=== PATIENT | male | born 1975 | race Caucasian/White ===

== ENCOUNTER 2017-04-15 22:50 | Inpatient (IN) | payer MEDICAID, OTHER ==
[2017-04-15 22:51] VITALS: BMI 25.8
--- NOTE | 2017-04-15 23:33 | C.PDOC ---
History Of Present Illness Patient was brought to the ED by a friend for evaluation of "hearing voices and seeing things." Patient denies physical complaints, suicidal, or homicidal ideations. Time Seen by Provider: 04/15/17 23:32 Chief Complaint (Nursing): Psychiatric Evaluation History Per: Other (friend ) History/Exam Limitations: no limitations Onset/Duration Of Symptoms: Unknown Current Symptoms Are (Timing): Still Present Suicide/Self Injury Attempted (Context): None Severity: None Pain Scale Rating Of: 0 Associated Symptoms: denies: Suicidal Thoughts, Suicidal Plan Involuntary Hold By: None Recent travel outside of the [place]: No Additional History Per: Patient Past Medical History Reviewed: Historical Data, Nursing Documentation, Vital Signs Vital Signs: Last Vital Signs Temp 98.7 F 04/15/17 23:14 Pulse 81 04/15/17 23:14 Resp 16 04/15/17 23:14 BP 178/91 H 04/15/17 23:14 Pulse Ox 100 04/16/17 00:13 - Medical History PMH: Anxiety, Depression - [facility] GROUP PSYCHOTHERAPY (01/26/16) MEDICATION MANAGEMENT (01/26/16) PHARMACOTHERAPY FOR SUBSTANCE ABUSE, METHADONE MAINT (01/26/16) Family History: States: Unknown Family Hx - Social History Hx Tobacco Use: Yes Hx Alcohol Use: No Hx Substance Use: Yes - Immunization History Hx Tetanus Toxoid Vaccination: No Hx Influenza Vaccination: No Hx Pneumococcal Vaccination: No Review Of Systems Constitutional: Negative for: Fever, Chills Cardiovascular: Negative for: Chest Pain Respiratory: Negative for: Shortness of Breath Psych: Positive for: Other (Patient is "hearing voices and seeing things"). Negative for: Suicidal ideation Physical Exam - Physical Exam Appears: Non-toxic, No Acute Distress, Other (Patient is anxious ) Skin: Warm, Dry Head: Atraumatic Eye(s): bilateral: Normal Inspection, PERRL, EOMI Oral Mucosa: Moist Neck: Supple Chest: Symmetrical Cardiovascular: Rhythm Regular Respiratory: No Rales, No Rhonchi, No Wheezing Gastrointestinal/Abdominal: Soft, No Tenderness, No Distention, No Guarding, No Rebound Extremity: Normal ROM, No Tenderness Neurological/Psych: Oriented x3, Normal Speech, Normal Cognition, Normal Cranial Nerves, Normal Motor, Normal Sensation, Normal Reflexes ED Course And Treatment - Laboratory Results Result Diagrams: 04/15/17 23:43 04/15/17 23:43 O2 Sat by Pulse Oximetry: 100 (room air ) Disposition Discussed With Dr.: Danii Barnes Comment: accepted the pt on her service and took over the care at 2 AM Doctor Will See Patient In The: Hospital Counseled Patient/Family Regarding: Studies Performed, Diagnosis - Disposition Disposition: HOSPITALIZED Disposition Time: 23:33 Condition: FAIR Forms: [facility] (Qatari) - POA Present On Arrival: None - Clinical Impression Clinical Impression: Drug abuse, Schizoaffective disorder - Scribe Statement The provider has reviewed the documentation as recorded by the Scribe Elyse Singh All medical record entries made by the Scribe were at my direction and personally dictated by me. I have reviewed the chart and agree that the record accurately reflects my personal performance of the history, physical exam, medical decision making, and the department course for this patient. I have also personally directed, reviewed, and agree with the discharge instructions and disposition. Decision To Admit - Pt Status Changed To: Hospital Disposition Of: Inpatient - Admit Certification Admit to Inpatient:: After my assessment, the patient will require hospitalization for at least two midnights. This is because of the severity of symptoms shown, intensity of services needed, and/or the medical risk in this patient being treated as an outpatient. - InPatient: Physician Admission Certification: I certify that this patient requires 2 or more midnights of care for the following reason:: After my assessment, the patient will require hospitalization for at least two midnights. This is because of the severity of symptoms shown, intensity of services needed, and/or the medical risk in this patient being treated as an outpatient. - . Bed Request Type: Psychiatry Admitting Physician: Danii Barnes Patient Diagnosis: Drug abuse, Schizoaffective disorder
[2017-04-15 23:46] LABS: BASO # 0.1 K/uL (0.0-0.2); BASO % 0.5 % (0.0-2.0); EOS # 0.1 K/uL (0.0-0.7); EOS % 0.6 % (0.0-4.0); HEMATOCRIT 40.6 % (35.0-51.0); LYMPH # 2.5 K/uL (1.0-4.3); LYMPH % 20.5 % (20.0-40.0); MEAN CORPUSCULAR HEMOGLOBIN 30.9 pg (27.0-31.0); MEAN PLATELET VOLUME 7.8 fL (7.2-11.7); MONO # 0.6 K/uL (0.0-0.8); MONO % 5.3 % (0.0-10.0); RED CELL DISTRIBUTION WIDTH 13.3 % (11.5-14.5); WHITE BLOOD COUNT 12.2 K/uL (4.8-10.8)
[2017-04-15 23:54] LABS: CHLORIDE 99 mmol/L (98-107); SODIUM 142 mmol/L (132-148)
[2017-04-15 23:55] LABS: POTASSIUM 3.5 mmol/L (3.6-5.2)
[2017-04-15 23:56] LABS: GFR AFRICAN-AMERICAN > 60
[2017-04-15 23:57] LABS: ALB/GLOB RATIO 1.2 (1.0-2.1); ALKALINE PHOSPHATASE 46 U/L (38-126); ALT/SGPT 28 U/L (21-72); AST/SGOT 18 U/L (17-59); BILIRUBIN,TOTAL 0.4 mg/dL (0.2-1.3); BLOOD UREA NITROGEN 15 mg/dL (9-20); CARBON DIOXIDE 29 mmol/L (22-30); GLUCOSE,RANDOM 77 mg/dL (75-110)
[2017-04-15 23:58] LABS: ALCOHOL SERUM < 10 mg/dl (0-10)
[2017-04-16 00:04] LABS: CALCIUM 9.6 mg/dl (8.6-10.4)
[2017-04-16 01:01] LABS: URINE BILIRUBIN NEGATIVE (NEGATIVE); URINE BLOOD NEGATIVE (NEGATIVE); URINE COLOR Yellow (YELLOW); URINE GLUCOSE (UA) NORMAL (Normal); URINE KETONE NEGATIVE (NEGATIVE); URINE LEUKOCYTE ESTERASE NEG Leu/uL (Negative); URINE PROTEIN NEGATIVE (NEGATIVE); URINE UROBILINOGEN NORMAL mg/dL (0.2-1.0); WBC URINE < 1 /hpf (0-5)
[2017-04-16 03:07] VITALS: O2SAT 97
--- NOTE | 2017-04-16 03:34 | PCM.BM ---
<Florencio Barr - Last Filed: 04/16/17 03:31> Treatment Plan Problems - Problems identified on initial assessmt Depression Date Initiated: 04/16/17 Time Initiated: 03:32 Assessment reference: NA Status: Active Audio Hallucination Date Initiated: 04/16/17 Time Initiated: 03:33 Assessment reference: NA Status: Active Substance Abuse Date Initiated: 04/16/17 Time Initiated: 03:34 Assessment reference: NA Status: Active Treatment assets and liabiliti Patient Assests: cooperative, ADL independent, good support system, negotiates basic needs Patient Liabilities: live alone, financial problems, substance abuse - Milieu Protocol Maintain good personal hygiene: daily Encourage regular showers, daily Remind patient to perform daily oral care, daily Assist patient to perform ADL's Maintain personal safety: every shift Educate patient to report safety concerns to staff, every shift Monitor environment for contraband/sharps Medication safety: Monitor for expected outcome, potential side effects: every shift, Assess barriers to learning: every shift, Assess readiness for medication education: every shift <Lore Flores - Last Filed: 04/17/17 11:34> Family Contact Family involvement: Famliy/SO not involved - Goals for Treatment Patient goals for treatment: "I want to go to rehab." Discharge/Continuing Care - Education Needs Education Needs: Patient Medication, Patient Coping Skills - Discharge Discharge Criteria: Tolerates medication w/o severe side effects, No longer exhibiting s/s of withdrawal Discharge to:: Substance Abuse Rehab - Treatment Team Participation Discussed with Family/SO: No Was Patient/Family/SO present at Treatment Team Meeting: Yes <Khadar Kulkarni - Last Filed: 04/17/17 11:39>
--- NOTE | 2017-04-16 23:08 | PCM.PSYCH ---
Initial Psychiatric Evaluation - Initial Psychiatric Evaluation Legal Status: Capacity Chief Complaint (in patient's own words): "I have heroin withdrawal" Patient's Reaction to Hospitalization: He stated that he is feeling safe in the hospital History of Present Illness and Precipitating Events: Patient is a 42 year old , single, unemployed, homeless male, with a history of depressive disorder, opioid use disorder, cocaine use disorder who came to the ED with depressed mood and suicidal ideation. Patient reports that he relapsed on cocaine, and heroin 3 month ago. Opiates : He started using heroine at the age of 18 years , increased gradually , currently using 10 bags daily, sniffing, last use was yesterday. cocaine for $30 worth on a daily basis by snorting. As per the patient yesterday he used almost 10 bags of heroin, $30 cocaine . became increasingly depressed for 1 week and suicidal for 3 days with a plan to commit suicide by jumping from roof or hang himself. He stated he was worried and does not want to end his life and came to the hospital to get help. Reported history of one previous suicidal attempt by overdose on pills, was not hospitalized. Cannabis: use daily 2-3 blunt. He denied drinking etoh. Patient reported hearing voices, stating that the voices were telling him to hurt himself and his family. However, he stated that he never acted on these voices. Reports depressed mood, feelings of hopelessness and helplessness, suicidal ideation with plan to overdose. Denies any homicidal ideation. Denies any Visual hallucinations or any delusions currently. Denies any racing of thoughts , flight of ideas or any manic symptoms. Denied any anxiety symptoms. Smokes cigarettes one pack daily. He denied manic symptoms. Social History: Home less, single, unemployed. Current Medications: Active Medications Generic Name Dose Route Start Last Admin Trade Name Freq PRN Reason Stop Dose Admin Hydroxyzine HCl 50 mg 04/16/17 03:56 Atarax PO QID PRN Anxiety Past Psychiatric History - Past Psychiatric History Prior Professional Help: multiple admission Prior Psychiatric Treatment: pt is not compliant with the treatment [facility] Duration: Few days to week Nature of Treatment: medication management Explanation of prior treatment: opiate detox and MDD tx History of Abuse: denied History of ETOH/Drug Use: Please see hpi History of Family Illness: denied Pertinent Medical Hx (Current Medical&Sleep Prob, Allergies): Allergies Allergy/AdvReac Type Severity Reaction Status Date / Time No Known Allergies Allergy Verified 01/26/16 01:11 Review of Systems - Review of Systems All systems: reviewed and no additional remarkable complaints except (please see HPI) Mental Status Examination - Personal Presentation Personal Presentation: Looks stated age Additional comments: positive chills and sweating, yawning, nasal discharge - Affect Affect: Constricted - Motor Activity Motor Activity: Calm, Psychomotor Retardation - Reliability in Providing Information Reliability in Providing Information: Good - Speech Speech: Organized - Mood Mood: Depressed - Formal Thought Process Formal Thought Process: Hallucinations - Hallucinations/Delusions Hallucinations: Auditory Additional comments: telling him to end his life - Obsessions/Compulsions Obsessions: No Compulsions: No - Cognitive Functions Orientation: Person, Place, Situation, Time Sensorium: Alert Attention/Concentration: Attentive Abstract Thinking: [place] Estimate of Intelligence: Average Judgement: Intact, as evidence by: Good judgement, Intact, as evidence by: Insight regarding need for hospitalization Memory: Recent intact, as evidence by: Ability to recall events of the day - Risk Risk: Withdrawal - Strength & Assets Inventory Strength & Assets Inventory: Intelligence, Interests/hobbies, Cooperative - Limitations Limitations: Other (homeless and unemployed) DSM 5 DX - DSM 5 DSM 5 Diagnosis: Major depressive disorder recurrent severe, with psychosis Opiate use disorder severe Cocaine use disorder Cannabis use disorder - Recommended/Plan of Treatment Treatment Recommendations and Plan of Treatment: Treatment Recommendations and Plan of Treatment: Patient education Supportive therapy Will start methadone taper Start Zoloft for depression Abilify for Psychosis Trazodone prn for sleep Atarax prn for anxiety Other supporting medications Medication benefits and side effects discussed with the pt. He verbalized understanding and in agreement with the plan Projected ELOS: 7-10 days Prognosis: fair with meds Discharge Plan and Discharge Criteria: as per SW - Smoking Cessation Smoking Cessation Initiated: Yes
--- NOTE | 2017-04-17 15:35 | PCM.PYCHPN ---
Psychiatric Progress Note - Psychiatric Progress Note Patient seen today, length of contact: 16 mins Patient Chief Complaint: "I am stressed" Problems Identified/Issues Discussed: The pt is seen, chart reviewed, case discussed with staff. Pt reports feeling stressed about "everything." Pt is currently homeless but did have a job before. Pt left [place] and came to [place] on Monday night to stay with one of his girlfriends. Pt has 6 children. Pt reports auditory hallucinations for a week that tell him to kill himself. Pt reports snorting 1 bundle a day of heroin and reports occasionally snorting cocaine as well. Pt denies use of any other drugs or alcohol. Pt says he plans to talk to his social media specialist for help after discharge. The pt is compliant with medications and reports no side-effects. Symptoms are improving but needs more time to stabilize. After care discussed, support and psychoeducation given. Mental Status Examination - Cognitive Function Orientation: Person, Place, Situation, Time - Mood Mood: Depressed - Affect Affect: Constricted - Formal Thought Process Formal Thought Process: Hallucinations - Homicidal Ideation Homicidal Ideation: No Goal/Treatment Plan - Goal/Treatment Plan Progress Toward Problem(s) and Goals/Treatment Plan: methadone taper Zoloft for depression Abilify for Psychosis Trazodone prn for sleep Atarax prn for anxiety Other supporting medications Medication benefits and side effects discussed with the pt. He verbalized understanding and in agreement with the plan Continue medications Support and psychoeducation daily Attend groups and activities daily After care planning by IDALMIS
[2017-04-18] MEDS: Hydrocortisone 1% Cream (30 GM) TOP SCH (13:43)
--- NOTE | 2017-04-18 14:01 | PCM.PYCHPN ---
Psychiatric Progress Note - Psychiatric Progress Note Patient seen today, length of contact: 16 mins Patient Chief Complaint: "I am stressed" Problems Identified/Issues Discussed: The pt is seen, chart reviewed, case discussed with staff. Pt says he still feels depressed. Pt requests a cream for discoloration on his face. Pt says the discoloration is due to snorting heroin. Pt denies SI, AVH, and paranoid delusions. Pt says he did not sleep well last night. The pt is compliant with medications and reports no side-effects. Symptoms are improving but needs more time to stabilize. After care discussed, support and psychoeducation given. Medication Change: Yes (Methadone taper) Mental Status Examination - Cognitive Function Orientation: Person, Place, Situation, Time - Mood Mood: Depressed - Affect Affect: Constricted - Formal Thought Process Formal Thought Process: Hallucinations - Homicidal Ideation Homicidal Ideation: No Goal/Treatment Plan - Goal/Treatment Plan Progress Toward Problem(s) and Goals/Treatment Plan: methadone taper Zoloft for depression Abilify for Psychosis Trazodone prn for sleep Atarax prn for anxiety Other supporting medications Medication benefits and side effects discussed with the pt. He verbalized understanding and in agreement with the plan Continue medications Support and psychoeducation daily Attend groups and activities daily After care planning by IDALMIS
[2017-04-19] MEDS: Hydrocortisone 1% Cream (30 GM) TOP SCH ×3 (09:39→17:00)
--- NOTE | 2017-04-19 14:03 | PCM.PYCHPN ---
Psychiatric Progress Note - Psychiatric Progress Note Patient seen today, length of contact: 16 mins Patient Chief Complaint: "I am depressed" Problems Identified/Issues Discussed: The pt is seen, chart reviewed, case discussed with staff. Pt reports feeling sad and depressed and reports feeling the same as yesterday. Pt reports racing thoughts and says he did not sleep well last night. Pt reports hearing voices in his head but could not specify what the voices were saying. Pt denies visual hallucinations. Pt says he vomitted last night and also reports abdominal and joint pain. Pt denies any diarrhea. The pt is compliant with medications and reports no side-effects. Symptoms are improving but needs more time to stabilize. After care discussed, support and psychoeducation given. Medication Change: Yes (Methadone taper) Medical Record Reviewed: Yes Mental Status Examination - Cognitive Function Orientation: Person, Place, Situation, Time Memory: Intact Attention: WNL Concentration: Poor Association: WNL Fund of Knowledge: Poor - Mood Mood: Depressed - Affect Affect: Constricted - Formal Thought Process Formal Thought Process: Hallucinations, Delusions - Suicidal Ideation Suicidal Ideation: No - Homicidal Ideation Homicidal Ideation: No Goal/Treatment Plan - Goal/Treatment Plan Need for Continued Stay: Severe depression anxiety, Failed transitioning Progress Toward Problem(s) and Goals/Treatment Plan: Continue medications Support and psychoeducation daily Attend groups and activities daily After care planning by IDALMIS - Smoking Cessation Smoking Cessation Initiated: No
[2017-04-20] MEDS: Hydrocortisone 1% Cream (30 GM) TOP SCH ×2 (10:13→17:32)
--- NOTE | 2017-04-20 12:48 | PCM.PYCHPN ---
Psychiatric Progress Note - Psychiatric Progress Note Patient seen today, length of contact: 15 minutes Patient Chief Complaint: "I feel better" Problems Identified/Issues Discussed: Patient seen , chart reviewed, case discussed with staff. Pt reports difficulty sleeping last night even with change in medications. Pt reports feeling better than yesterday. The pt is compliant with medications and reports no side-effects. Symptoms are improving but needs more time to stabilize. After care discussed, support and psychoeducation given. Medical Problems: None reported Diagnostic Results: Reviewed DSM 5 Symptoms Update: Improving with treatment Medication Change: No Medical Record Reviewed: Yes Mental Status Examination - Cognitive Function Orientation: Person, Place, Situation, Time Memory: Intact Attention: WNL Concentration: WNL Association: WN Fund of Knowledge: [facility] Decription of patient's judgement and insights: Fair - Mood Mood: Depressed (Less than before) - Affect Affect: Constricted - Speech Speech: Soft - Formal Thought Process Formal Thought Process: Other - Suicidal Ideation Suicidal Ideation: No - Homicidal Ideation Homicidal Ideation: No Goal/Treatment Plan - Goal/Treatment Plan Need for Continued Stay: Remain at risks for inpatient hospitalization, Discharge may exacerbated symptoms, Severe functional impairment Progress Toward Problem(s) and Goals/Treatment Plan: Continue medications Support and psychoeducation daily Attend groups and activities daily After care planning by IDALMIS Estimated Date of D/C: 04/24/17 - Smoking Cessation Smoking Cessation Initiated: No
[2017-04-21] MEDS: Hydrocortisone 1% Cream (30 GM) TOP SCH ×2 (09:05→17:15)
--- NOTE | 2017-04-21 16:11 | PCM.PYCHPN ---
Psychiatric Progress Note - Psychiatric Progress Note Patient seen today, length of contact: 15 minutes Patient Chief Complaint: "I feel better" Problems Identified/Issues Discussed: Patient seen , chart reviewed, case discussed with staff. Pt reports better sleeping last night. Pt reports feeling better than yesterday. The pt is compliant with medications and reports no side-effects. Symptoms are improving but needs more time to stabilize. After care discussed, support and psychoeducation given. Medical Problems: None reported Diagnostic Results: Reviewed DSM 5 Symptoms Update: Improving with treatment Medication Change: No Medical Record Reviewed: Yes Mental Status Examination - Cognitive Function Orientation: Person, Place, Situation, Time Memory: Intact Attention: WNL Concentration: WNL Association: [facility] Fund of Knowledge: [facility] Decription of patient's judgement and insights: Fair - Mood Mood: Depressed (Less than before) - Affect Affect: Depressed - Speech Speech: Soft - Formal Thought Process Formal Thought Process: No Impairment, Other Psychotic Thoughts and Behaviors: None - Suicidal Ideation Suicidal Ideation: No - Homicidal Ideation Homicidal Ideation: No Goal/Treatment Plan - Goal/Treatment Plan Need for Continued Stay: Remain at risks for inpatient hospitalization, Discharge may exacerbated symptoms, Severe functional impairment Progress Toward Problem(s) and Goals/Treatment Plan: Continue medications Support and psychoeducation daily Attend groups and activities daily After care planning by IDALMIS Estimated Date of D/C: 04/24/17 - Smoking Cessation Smoking Cessation Initiated: No
[2017-04-22] MEDS: Hydrocortisone 1% Cream (30 GM) TOP SCH ×2 (09:35→17:20)
--- NOTE | 2017-04-22 17:11 | PCM.PYCHPN ---
Psychiatric Progress Note - Psychiatric Progress Note Patient seen today, length of contact: 15 minutes Patient Chief Complaint: "I feel much better better" Problems Identified/Issues Discussed: Patient seen , chart reviewed, case discussed with staff. Pt reports better sleeping last night. Pt reports feeling better than yesterday. The pt is compliant with medications and reports no side-effects. Today patient was more social with other patients on the unit Symptoms are improving but needs more time to stabilize. After care discussed, support and psychoeducation given. Medical Problems: None reported Diagnostic Results: Reviewed DSM 5 Symptoms Update: Improving with treatment Medication Change: No Medical Record Reviewed: Yes Mental Status Examination - Cognitive Function Orientation: Person, Place, Situation, Time Memory: Intact Attention: WNL Concentration: WNL Association: [facility] Fund of Knowledge: [facility] Decription of patient's judgement and insights: Fair - Mood Mood: Depressed (Much Less than before) - Affect Affect: Other (Appropriate) - Speech Speech: Soft - Formal Thought Process Formal Thought Process: No Impairment, Other Psychotic Thoughts and Behaviors: None - Suicidal Ideation Suicidal Ideation: No - Homicidal Ideation Homicidal Ideation: No Goal/Treatment Plan - Goal/Treatment Plan Need for Continued Stay: Remain at risks for inpatient hospitalization, Discharge may exacerbated symptoms, Severe functional impairment Progress Toward Problem(s) and Goals/Treatment Plan: Continue medications Support and psychoeducation daily Attend groups and activities daily After care planning by IDALMIS Estimated Date of D/C: 04/24/17 - Smoking Cessation Smoking Cessation Initiated: No
[2017-04-23 07:57] VITALS: BP 129/63; PULSE 71; RESP 18; TEMP 97
--- NOTE | 2017-04-23 16:32 | PCM.PYCHDC ---
Mental Status Examination - Mental Status Examination Orientation: Person, Place, Situation, Time Memory: Intact Mood: Neutral Affect: Other (Appropriate) Speech: Appropriate Attention: WNL Concentration: WNL Association: WNL Fund of Knowledge: WNL Formal Thought Process: No Impairment Description of patient's judgement and insight: Fair Psychotic Thoughts and Behaviors: None Suicidal Ideation: No Current Homicidal Ideation?: No Discharge Summary - Discharge Note Reason for Hospitalization: Major depressive disorder recurrent severe with psychotic features Opiate use disorder Cocaine use disorder Psychiatric History (includes Medical, Family, Personal Hx): medication management Laboratory Data: Reviewed Consultations:: List each consultation separately and include: 1. Reason for request. 2. Findings. 3. Follow-up Summary of Hospital Course include:: 1. Description of specific treatment plan utilized for patients during their course of treatmen. 2. Summarize the time- course for resolution of acute symptoms and/or regressed behaviors. 3. Describe issues identified and worked on during hospitalization. 4. Describe medication utilized. 5. Describe medical problems identified and treated. 6. Reassessment of suicide risk Summary of Hospital Course: Patient is a 42 year old , single, unemployed, homeless male, with a history of depressive disorder, opioid use disorder, cocaine use disorder who came to the ED with depressed mood and suicidal ideation. Patient reports that he relapsed on cocaine, and heroin 3 month ago. Opiates : He started using heroine at the age of 18 years , increased gradually , currently using 10 bags daily, sniffing, last use was yesterday. cocaine for $30 worth on a daily basis by snorting. As per the patient yesterday he used almost 10 bags of heroin, $30 cocaine . became increasingly depressed for 1 week and suicidal for 3 days with a plan to commit suicide by jumping from roof or hang himself. He stated he was worried and does not want to end his life and came to the hospital to get help. Reported history of one previous suicidal attempt by overdose on pills, was not hospitalized. Cannabis: use daily 2-3 blunt. He denied drinking etoh. Patient reported hearing voices, stating that the voices were telling him to hurt himself and his family. However, he stated that he never acted on these voices. Reports depressed mood, feelings of hopelessness and helplessness, suicidal ideation with plan to overdose. Denies any homicidal ideation. Denies any Visual hallucinations or any delusions currently. Denies any racing of thoughts , flight of ideas or any manic symptoms. Denied any anxiety symptoms. Smokes cigarettes one pack daily. He denied manic symptoms. Social History: Home less, single, unemployed. During his stay on the unit patient was treated for his symptoms of opiate withdrawal with methadone and other when necessary medications. Patient was also started on Abilify, sertraline and allopurinol medications. With the above treatment patient started feeling better with no withdrawal symptoms. Today patient was ready for discharge. At the time of evaluation and discharge, patient was awake alert oriented 3, had no delusions, no auditory or visual hallucinations, no suicidal ideations or homicidal ideations. Patient was discharged in a stable condition. Patient will go to [facility]. - Final Diagnosis (DSM 5) Condition upon Discharge: STABLE Disposition: HOME/ ROUTINE Prescriptions/Medication Reconciliation: ARIPiprazole [Abilify] 10 mg PO HS #30 tab Sertraline [Zoloft] 100 mg PO DAILY #30 tab traZODone [Desyrel] 100 mg PO DAILY #30 tab - Smoking Cessation Smoking Cessation Medication prescribed: No - Antipsychotic Medications Pt discharged on 2 or more routine antipsychotic medications: No
== END 2017-04-23 12:48 | disposition home or self-care (01) | DRG 744 ==
LOC: C.ER 22:50 → C.5E 04-16 02:03
PROVIDERS: ADMIT Psychiatry & Neurology Psychiatry; ATTEND Psychiatry & Neurology Psychiatry
PROC: HZ2ZZZZ Detoxification Services for Substance Abuse Treatment (ICD-10-PCS; principal; 2017-04-16)
PROC: HZ56ZZZ Individual Psychotherapy for Substance Abuse Treatment, Psychoeducation (ICD-10-PCS; 2017-04-16)
PROC: HZ59ZZZ Individual Psychotherapy for Substance Abuse Treatment, Supportive (ICD-10-PCS; 2017-04-16)
DX: F11.23 Opioid dependence with withdrawal (principal); F33.3 Major depressive disorder, recurrent, severe with psychotic symptoms; R45.851 Suicidal ideations; F41.9 Anxiety disorder, unspecified; F14.10 Cocaine abuse, uncomplicated; Z59.0 Homelessness; F17.210 Nicotine dependence, cigarettes, uncomplicated; F12.10 Cannabis abuse, uncomplicated

== ENCOUNTER 2017-09-16 23:08 | Emergency (ER) | payer OTHER ==
[2017-09-16 23:09] VITALS: BMI 25.8
[2017-09-16 23:33] VITALS: RESP 20
--- NOTE | 2017-09-16 23:52 | C.PDOC ---
History Of Present Illness 42 years old male with known hx of depression, is currently not on medications due to lack of insurance. Patient complaints of feeling depressed. Patient currently lost his job. Pt states he is hearing voices telling him to jump infront of the path train. Pt had prior hospitalization in [facility] for suicidal ideation. Denies drug, alcohol use or any physical complaints. Pt is not currently having hallucinations but was having auditory hallucinations this evening. Time Seen by Provider: 09/16/17 23:41 Chief Complaint (Nursing): Psychiatric Evaluation History Per: Patient History/Exam Limitations: no limitations Onset/Duration Of Symptoms: Hrs Current Symptoms Are (Timing): Still Present Suicide/Self Injury Attempted (Context): None Modifying Factor(s): None Associated Symptoms: Depression, Suicidal Thoughts. denies: Anger Involuntary Hold By: None Recent travel outside of the [place]: No Past Medical History Reviewed: Historical Data, Nursing Documentation, Vital Signs Vital Signs: Last Vital Signs Temp 97.9 F 09/17/17 05:21 Pulse 65 09/17/17 05:21 Resp 20 09/17/17 05:21 BP 137/85 09/17/17 05:21 Pulse Ox 98 09/17/17 05:21 - Medical History PMH: Anxiety, Depression - [facility] DETOXIFICATION SERVICES FOR SUBSTANCE ABUSE TREATMENT (04/16/17) GROUP PSYCHOTHERAPY (01/26/16) INDIV PSYCHOTHERAPY FOR SUBSTANCE ABUSE TREATMENT, SUPPORT (04/16/17) INDIV PSYCHOTHERAPY FOR SUBSTANCE ABUSE, PSYCHOEDUCATION (04/16/17) MEDICATION MANAGEMENT (01/26/16) PHARMACOTHERAPY FOR SUBSTANCE ABUSE, METHADONE MAINT (01/26/16) Family History: States: Unknown Family Hx - Social History Hx Tobacco Use: Yes Hx Alcohol Use: No Hx Substance Use: Yes ([facility]) - Immunization History Hx Tetanus Toxoid Vaccination: No Hx Influenza Vaccination: No Hx Pneumococcal Vaccination: No Review Of Systems Constitutional: Negative for: Fever Cardiovascular: Negative for: Chest Pain Gastrointestinal: Negative for: Nausea, Vomiting, Diarrhea Neurological: Negative for: Weakness, Numbness, Change in Speech Psych: Positive for: Depression, Suicidal ideation Physical Exam - Physical Exam Appears: Well, Non-toxic, No Acute Distress, Other (Awake and alert; no evidence of IV drug use) Skin: Warm, Dry Head: Atraumatic, Normacephalic Eye(s): bilateral: Normal Inspection Oral Mucosa: Moist Neck: Supple Chest: Symmetrical, No Tenderness Respiratory: Normal Breath Sounds, No Decreased Breath Sounds, No Rales, No Rhonchi, No Wheezing Gastrointestinal/Abdominal: Soft, No Tenderness Extremity: Normal ROM Extremity: Bilateral: Normal Color And Temperature, Normal ROM Pulses: Left Radial: Normal, Right Radial: Normal Neurological/Psych: Oriented x3, Normal Speech, Normal Cognition, Other (no focal deficits) ED Course And Treatment - Laboratory Results Result Diagrams: 09/17/17 00:37 09/17/17 00:37 O2 Sat by Pulse Oximetry: 99 (RA) Pulse Ox Interpretation: Normal Medical Decision Making Medical Decision Making: Ordered EKG, drug screen, blood work and urinalysis. Crisis notified..Pt is medically cleared for psych eval Disposition - Disposition Disposition: OTHER INSTITUTION Disposition Time: 03:40 Condition: FAIR Forms: [facility] (Uzbek) - Clinical Impression Clinical Impression: Moderate major depression, single episode, Drug abuse, Suicidal ideation - Scribe Statement The provider has reviewed the documentation as recorded by the Scribjacinta Brenner All medical record entries made by the Scribe were at my direction and personally dictated by me. I have reviewed the chart and agree that the record accurately reflects my personal performance of the history, physical exam, medical decision making, and the department course for this patient. I have also personally directed, reviewed, and agree with the discharge instructions and disposition.
[2017-09-17 00:43] LABS: BASO % 0.5 % (0.0-2.0); EOS % 0.3 % (0.0-4.0); HEMOGLOBIN 14.6 g/dL (12.0-18.0); LYMPH # 1.8 K/uL (1.0-4.3); LYMPH % 18.6 % (20.0-40.0); MEAN CELL VOLUME 90.9 fL (80.0-94.0); MEAN CORPUSCULAR HGB CONC 35.2 g/dL (33.0-37.0); MEAN PLATELET VOLUME 8.3 fL (7.2-11.7); MONO # 0.7 K/uL (0.0-0.8); MONO % 7.3 % (0.0-10.0); NEUT % 73.3 % (50.0-75.0); RBC 4.57 Mil/uL (4.40-5.90); RED CELL DISTRIBUTION WIDTH 12.9 % (11.5-14.5); WHITE BLOOD COUNT 9.5 K/uL (4.8-10.8)
[2017-09-17 00:54] LABS: ACETAMINOPHEN < 10.0 ug/mL (10.0-30.0); SALICYLATE < 1.0 mg/dL 1
[2017-09-17 00:56] LABS: ALB/GLOB RATIO 1.4 (1.0-2.1); ALBUMIN 4.6 g/dL (3.5-5.0); ALT/SGPT 27 U/L (21-72); AST/SGOT 21 U/L (17-59); BLOOD UREA NITROGEN 15 mg/dL (9-20); CALCIUM 9.1 mg/dl (8.6-10.4); GFR AFRICAN-AMERICAN > 60; GFR NON-AFRICAN AMERICAN > 60
[2017-09-17 01:20] LABS: URINE BILIRUBIN NEGATIVE (NEGATIVE); URINE BLOOD NEGATIVE (NEGATIVE); URINE CLARITY Clear (Clear); URINE COLOR Yellow (YELLOW); URINE GLUCOSE (UA) NORMAL (Normal); URINE LEUKOCYTE ESTERASE NEG Leu/uL (Negative); URINE NITRATE NEGATIVE (NEGATIVE); URINE PROTEIN NEGATIVE (NEGATIVE)
[2017-09-17 02:04] LABS: BARBITURATES, UR NEGATIVE (NEGATIVE); BENZODIAZEPINES, UR NEGATIVE (NEGATIVE); PHENCYCLIDINE, UR NEGATIVE (NEGATIVE)
[2017-09-17 02:08] LABS: OPIATES, UR POSITIVE (NEGATIVE)
[2017-09-17 05:23] VITALS: BP 137/85; PULSE 65; TEMP 97.9
[2017-09-17 06:24] VITALS: O2SAT 99
--- NOTE | 2017-09-18 22:02 | CARD ---
APPROVED REPORT EKG Measurement Heart [id number] <Conclusion> Normal sinus rhythm Normal ECG
== END 2017-09-17 06:05 | disposition short-term general hospital (02) ==
LOC: C.ER 23:08
DX: F32.1 Major depressive disorder, single episode, moderate (principal); F19.10 Other psychoactive substance abuse, uncomplicated; R45.851 Suicidal ideations